=== PATIENT | male | born 2005 | race Caucasian/White ===

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

== ENCOUNTER 2024-04-23 10:13 | Emergency (ER) | payer BC, MEDICAID, SELFPAY ==
[2024-04-23 10:34] VITALS: BP 122/83; PULSE 87; RESP 17; TEMP 36.7; O2SAT 99
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
[2024-04-23 11:07] LABS: Basophils Absolute Auto 0.1 K/mm3 (0.0-0.1); Basophils Percent Auto 0.8 % (0.2-1.2); Eosinophils Absolute Auto 0.3 K/mm3 (0-0.3); Eosinophils Percent Auto 5.4 % (0-4.4); Hematocrit 47.4 % (42.0-52.0); Hemoglobin 15.6 g/dL (14.0-18.0); Immature Granulocyte Absolute 0.01 K/mm3 (0.00-0.031); Immature Granulocyte Percent A 0.2 % (0-0.5); Lymphocytes Absolute Auto 1.44 K/mm3 (0.9-3.2); Lymphocytes Percent Auto 23.6 % (18.3-44.2); Mean Corpuscular HGB Conc 32.9 g/dl (32-36); Mean Corpuscular Hemoglobin 29.3 pg (26-34); Mean Corpuscular Volume 89.1 fl (80-100); Mean Platelet Volume 10.9 fl (7.4-10.4); Monocytes Absolute Auto 0.5 K/mm3 (0.1-0.6); Monocytes Percent Auto 8.2 % (2.6-8.5); Neutrophils Absolute Auto 3.8 K/mm3 (1.3-6.7); Neutrophils Percent Auto 61.8 % (45.5-73.1); Platelet Count Result 219 k/mm3 (150-375); Red Blood Count 5.32 M/mm3 (4.6-6.20); Red Cell Distribution Width 13.2 % (11.5-14.5); White Blood Count 6.1 K/mm3 (4.5-10.0)
[2024-04-23 11:21] LABS: Acetaminophen < 10 ug/mL (10-30); Salicylate < 1.0 mg/dL (2-20)
[2024-04-23 11:21] LABS: Ethanol < 10 mg/dL (<10)
[2024-04-23 11:22] LABS: Alanine Aminotransferase 16 U/L (6-50); Albumin Level 4.9 g/dL (3.5-5.1); Alkaline Phosphatase 83 U/L (38-126); Anion Gap 11 mmol/L (4-12); Aspartate Amino Transferase 29 U/L (17-59); Bilirubin,Total 1.4 mg/dL (0.2-1.3); Blood Urea Nitrogen 13 mg/dL (9-20); Calcium 10.2 mg/dL (8.4-10.2); Carbon Dioxide 29 mmol/L (22-30); Chloride 100 mmol/L (98-107); Estimated CRCL calculation 101 ml/min; Estimated Glomerular Filt Rate > 60; Glucose 103 mg/dL (65-110); Potassium 4.3 mmol/L (3.4-5.0); Sodium 140 mmol/L (137-145)
[2024-04-23 11:32] LABS: Amphetamine Screen Urine Negative (Negative); Barbiturate Screen Urine Negative (Negative); Benzodiazepines Screen Urine Negative (Negative); Cannabinoid Screen Urine Positive (Negative); Cocaine Screen Urine Negative (Negative); Methadone Screen Urine Negative (Negative); Opiate Screen Urine Negative (Negative); Phencyclidine Screen Urine Negative (Negative)
[2024-04-23 11:42] LABS: Add Urine Microscopic? YES; Appearance Urine Clear (Clear); Bacteria Urine None Seen /hpf; Bilirubin Urine Negative (Negative); Blood Urine Negative (Negative); Color Urine Dark Yellow (Yellow); Glucose Urine UA Negative (Negative); Ketones Urine Trace mg/dL (Negative); Leukocyte Esterase Ur Trace LEU/UL (Negative); Mucus Urine Present /lpf; Need Manual Microscopic Reviewed; Nitrate Urine Negative (Negative); Protein Urine 1+ mg/dL (Negative); RBC Urine 0-2 /hpf (0-2); Specific Grav Ur 1.029 (1.001-1.035); Squamous Epithelial Cell Urine None Seen /hpf (Few); WBC Urine 0-5 /hpf (0-3); pH Urine 7.5 (5.0-9.0)
[2024-04-23 11:58] LABS: Thyroid Stimulating Hormone Reflex 0.552 uIU/mL (0.465-4.68)
[2024-04-23 12:01] LABS: SARS-CoV-2 RNA PCR Negative (Negative)
== END 2024-04-23 14:35 | disposition home or self-care (01) ==
PROVIDERS: Emergency Medicine; Emergency Provider Physician Assistant; PCP Family Medicine
DX: R45.851 Suicidal ideations (principal); F41.9 Anxiety disorder, unspecified; Z11.52 Encounter for screening for COVID-19; Z87.891 Personal history of nicotine dependence
CPT/HCPCS: 36415; 80053; 80307; 81001; 84443; 85025; 87635; 99284

== ENCOUNTER 2024-10-25 23:30 | Emergency (ER) | payer OTHER, BC, MEDICAID, SELFPAY ==
--- NOTE | ~2024-10-25 | XR_ITS ---
EXAMINATION: XR chest 2V DATE: 10/26/2024 00:24 INDICATION: Chest pain. Injury. TECHNIQUE: Frontal and lateral views of the chest were obtained. COMPARISON: Chest 2 views 12/05/2021 FINDINGS: There is no pneumonia, pleural effusion, or pneumothorax. The heart size is normal. IMPRESSION: 1. No acute cardiopulmonary disease. Reviewed, dictated and finalized at location A. ER FILLER
--- NOTE | ~2024-10-25 | XR_ITS ---
EXAMINATION: XR tibia fibula LT 2V DATE: 10/26/2024 00:24 INDICATION: Left lower leg injury and pain. TECHNIQUE: 2 views of left tibia and fibula on 4 radiographs were obtained. COMPARISON: None. FINDINGS: Alignment is normal. No fracture. Joint spaces are normal. IMPRESSION: 1. No fracture. Reviewed, dictated and finalized at location A. HING MACHINE OPERATOR IMPRESSION: 1. No fracture.
--- OUTSIDE RECORDS SUMMARY | 2024-10-25 23:32 | XMS_ITS | Clinical Summary ---
Author Organization 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 Gender Identity Not on file Sexual Orientation Not on file Plan of Treatment Health Maintenance Due Date Last Done Comments Hepatitis C Virus (HCV) Screening 2003 Human Papillomavirus (HPV) Immunization (1 - Male 3-dose series) 2018 Meningococcal B Immunization (1 of 2 - Standard) 2019 Influenza Immunization (#1) 2024 07/23/2013 SARS-COV-2 Immunization ( season) 2024 Respiratory Syncytial Virus (RSV) Immunization (Adult) (1 - 1-dose 75+ series) 2078 Hepatitis B Immunization Completed 004, 2003, 2003 Pneumococcal Immunization Combined Aged Out 07/21/2004, 2003, 2003, Additional history exists No longer eligible based on patient's age to complete this topic Measles Mumps Rubella (MMR) Immunization Discontinued 04/08/2008, 07/21/2004 Polio (IPV) Immunization Discontinued 008, 2003, 2003 Varicella Immunization Discontinued 04/08/2008, 2003 DTaP/Tdap/Td Immunization Discontinued 2013, 04/08/2008, 2003, Additional history exists TdaP Immunization Completed 04/22/2014 Meningococcal Immunization (ACWY) Completed 06/11/2020, 04/22/2014 Rotavirus Immunization Aged Out No lo nger eligible based on patient's age to complete this topic
[2024-10-25 23:38] VITALS: BP 159/89; PULSE 68; RESP 19; TEMP 37.3; O2SAT 100
--- NOTE | 2024-10-25 23:53 | ECG_ITS ---
Test Date: 2024-10-25 23:59:30 Measurements Intervals [place] Rate: 72 P: 68 OR: 145 QRS: 68 QRSD: 98 T: 50 QT: 347 QTc: 381 Interpretive Statements SINUS RHYTHM PEAKED T WAVES- CONSIDER HYPERKALEMIA ABNORMAL ECG No previous ECG available for comparison Electronically Signed On 10-26-2024 06:54:36 FIRE ALARM TECHNICIAN by Jan Álvarez D.O.
[2024-10-26] VITALS (8 sets, daily range): BP systolic 111–118; BP diastolic 69–86; PULSE 60–87; RESP 10–28; O2SAT 98–100
--- NOTE | 2024-10-26 02:44 | ED_ITS ---
HPI - General Adult General Chief complaint: Trauma Stated complaint: chest and leg crushed between a roller Time Seen by Provider: 10/26/24 02:31 History of Present Illness HPI narrative: 19-year-old otherwise healthy male presenting to the emergency department for evaluation after a injury he sustained at work. He was working with a roller press when 1 of the rollers pushed into his chest briefly and then patient fell backwards and landed on his leg. Patient was able to get the metal off of him and then get up without assistance. He was complain of some small bruising to his left lower extremity and calf as well as tenderness over his ribcage. Did not lose consciousness, no significant crush type injury or any difficulty with extrication. No head trauma or injury. He has otherwise been in his normal state of health, describes a 2/10 pain is left-sided ribcage and a 6/10 pain in his left calf. Is able to ambulate unassisted. Has not taken anything for pain prior to arrival. Denies any shortness of breath, difficulty breathing, nausea, vomiting, vision changes, weakness, fatigue, calf asymmetry or difficulty ambulating. Related Data Allergies Allergy/AdvReac Type Severity Reaction Status Date / Time Penicillins Allergy Intermediate Unknown Verified 04/23/24 10:55 Review of Systems Review of Systems: As reviewed above in HPI ON LICENSE OF [facility] Past Medical History Medical History Penile mass Cough productive of yellow sputum Left wrist fracture Surgical History Surgical History No history of previous surgery Family History Family History Mother Family history of malignant neoplasm of breast Grandparent Hypertension Other Depression Family history of elevated blood lipids Social History Social History Smoking status: Former smoker Tobacco type: e-cigarettes/vaping Second hand tobacco smoke exposure: No Alcohol intake: never Substance use: never Substance use type: marijuana Lack of Transportation: No Lack of Food: Never True Current Housing: Decline to Answer Concerned About Future Housing: No Difficulty Paying Gas/Electric Bills: No Difficulty Paying for Meds: No Currently Unemployed: No Education: High School Diploma/GED Difficulty w/ Childcare or Family Care: No Exam Narrative: GENERAL: [Well-appearing, well-nourished, and in no acute distress.] HEAD: [Normocephalic, atraumatic.] EYES: [PERRLA and EOMI.] ENT: Nares clear, no rhinorrhea or epistaxis. Mucous membranes moist. NECK: Supple. CHEST: [Clear to auscultation. No respiratory distress.] HEART: [Regular rate and rhythm]. No murmur heard. [Normal peripheral pulses.] ABDOMEN: [Soft, nondistended], [nontender], [No rigidity or guarding] EXTREMITIES: Normal range of motion, plantar and dorsiflexion 5/5, hip and knee flexion 5/5 bilaterally. Able ambulate without any ataxic or antalgic gait. Focal tenderness over the gastrocnemius muscles distant left lower extremity but no overlying skin changes or bruising. No calf asymmetry. Tenderness over the left-sided ribcage on the 5th rib without any step-offs deformities or any instability in the chest wall. SKIN: Warm, dry, no rash. NEURO: [No focal deficits]. Alert and oriented [x3.] PSYCH: [Normal mood and affect.] Course Vital Signs Vital signs: Vital Signs Temperature 37.3 C 10/25/24 23:38 Pulse Rate 68 10/25/24 23:38 Respiratory Rate 19 10/25/24 23:38 Blood Pressure 159/89 H 10/25/24 23:38 Pulse Oximetry 100 10/25/24 23:38 Oxygen Delivery Room Air 10/25/24 23:38 Temperature 37.3 C 10/25/24 23:38 Pulse Rate 87 10/26/24 02:31 Respiratory Rate 22 H 10/26/24 02:31 Blood Pressure 118/84 10/26/24 02:31 Pulse Oximetry 100 10/26/24 02:31 Oxygen Delivery Room Air 10/25/24 23:38 Medical Decision Making MDM Narrative Medical decision making narrative: 19-year-old male presenting for injuries sustained at work. He is minor tend erness along his left-sided 5th rib without any step-offs deformities. Clear breath sounds throughout, normal oxygenation, no tachypnea, hypoxia or tachycardia. He also has some left-sided calf tenderness but no asymmetry or bruising. Full range of motion of his musculoskeletal structures, otherwise well-appearing not any acute distress. X-rays were obtained of his left tib-fib region as well as they two-view of his chest and x-rays of his ribs. EKG obtained in triage. Patient provided intramuscular Toradol. X-ray showed no evidence of any fractures or dislocations. No consolidations, pleural effusions or pneumothorax on the chest x-ray. No visible rib fractures. Patient was re-evaluated with improvement in his pain was stable for discharge home at this time and given a short course of Toradol in addition to Tylenol for analgesia. Patient discharged with return precautions. Medical Records Medical records reviewed: Yes I reviewed the external patient's medical records. Vital Signs Vital Signs: Vital Signs Temperature 37.3 C 10/25/24 23:38 Pulse Rate 68 10/25/24 23:38 Respiratory Rate 19 10/25/24 23:38 Blood Pressure 159/89 H 10/25/24 23:38 Pulse Oximetry 100 10/25/24 23:38 Oxygen Delivery Room Air 10/25/24 23:38 Temperature 37.3 C 10/25/24 23:38 Pulse Rate 87 10/26/24 02:31 Respiratory Rate 22 H 10/26/24 02:31 Blood Pressure 118/84 10/26/24 02:31 Pulse Oximetry 100 10/26/24 02:31 Oxygen Delivery Room Air 10/25/24 23:38 Imaging Data Attestation: I personally reviewed and interpreted this imaging study as follows: My impression: No fractures, dislocations or injury. No cardiothoracic findings on chest x- ray. Discharge Plan Discharge Clinical Impression: Left-sided chest wall pain, Left leg pain, Accident at workplace Patient Disposition: Home, Self-Care Condition: Stable Instructions: Antibiotic Form Additional Instructions: Your x-rays are very reassuring, no fractures or injuries. Follow-up with regular doctor. Take Tylenol in addition to the ketorolac on prescription. Return with any new or worsening concerns. Patient Language: Citizen Of [place] Prescriptions: New acetaminophen [Tylenol Extra Strength] 500 mg tablet 1,000 mg PO TID PRN (Reason: pain) Qty: 30 0RF ketorolac 10 mg tablet 10 mg PO Q8H PRN (Reason: pain) 5 Days Qty: 20 0RF Rx Instructions: maximum total duration of 5 days from all oral, intranasal, or parenteral formulations lidocaine 5 % adhesive patch,medicated 1 patch topical DAILY Qty: 15 0RF Rx Instructions: leave on most painful area for up to 12 hrs No Action lorazepam [Ativan] 0.5 mg tablet 0.5 mg PO BID PRN (Reason: anxiety) Qty: 6 0RF albuterol sulfate [ProAir HFA] 90 mcg/actuation HFA aerosol inhaler 1 inh inhalation QID Qty: 6.7 2RF Follow-up/Referrals: Ebony Armstrong MD [Primary Care Provider] - Time of Disposition: 02:49
--- OUTSIDE RECORDS SUMMARY | 2024-10-26 03:00 | XMS_ITS | Referral Summary ---
Author Organization [facility] Address [address] [address] Care Team Providers Care Cisco Engineer Name Role Phone Ebony Armstrong MD Primary Care Provider [phone] Que Lester AMMONIUM NITRATE CRYSTALLIZER-TECHNICIAN TEST SYSTEMS Unavailable [phone] Source Comments [facility],non-owned Affiliates and Associated Physician Practices is amultiple site organization consisting of ambulatory clinics and hospital sitesin [place], [place], [place] and [place]. This disclosure is being madepursuant to the Care Everywhere program and may not contain all information available regarding this patient. Last updated 18.[facility] Allergies No known active allergies Medications * Be aware that medications may not be up to date on this document. Alwaysverify current medications with the patient. Medication Sig Dispensed Refills Start Date End Date Status lisdexamfetamine (VYVANSE) 60 MG capsule Take 60 mg by mouth once daily Active Active Problems Problem Noted Date Diagnosed Date Nondisplaced fracture of mid dle third of navicular bone of left wrist with routine healing 01/22/2020 Social History Tobacco Use Types Packs/Day Years Used Date Smoking Tobacco: Never Smokeless Tobacco: Never Sex and Gender Information Value Date Recorded Sex Assigned at Not on file Gender Identity Not on file Sexual Orientation Not on file Last Filed Vital Signs Vital Sign Reading Time Taken Comments Blood Pressure - - Pulse - - Temperature - - Respiratory Rate - - Oxygen Saturation - - Inhaled Oxygen Concentration - - Weight 78.3 kg (172 lb 9.9 oz) 03/04/2020 4:19 P M CDT Height 184.6 cm (6' 0.68 ) 03/04/2020 4:19 PM CD T Body Mass Index 22.98 03/04/2020 4:19 PM CDT Plan of Treatment Not on file Care Teams Cisco Engineer Relationship Specialty Start Date End Date Ebony Armstrong MD [address] [place] [address] PCP - General Family Medicine 12/11/19 Que Lester, AMMONIUM NITRATE CRYSTALLIZER-TECHNICIAN TEST SYSTEMS [address] [place] [address] Orthopedic Surgery Nurse Practitioner Family 03/04/20
--- OUTSIDE RECORDS SUMMARY | 2024-10-26 03:00 | XMS_ITS | Patient Health Summary ---
Author Organization [facility] Address [address] [place] [address] Care Team Providers Care Endband Cutter Hand Name Role Phone Ebony Armstrong MD Primary Care Provider [phone] Que Lester VP DIGITAL MARKETING-CUTTING MACHINE OPERATOR HELPER Unavailable [phone] Note from [facility],non-owned Affiliates and Associated Physician Practices is amultiple site organization consisting of ambulatory clinics and hospital sitesin [place], [place], [place] and [place]. This disclosure is being madepursuant to the Care Everywhere program and may not contain all information available regarding this patient. Last updated 18.[facility] Allergies No known active allergies Medications * Be aware that medications may not be up to date on this document. Alwaysverify current medications with the patient. * lisdexamfetamine (VYVANSE) 60 MG capsule Take 60 mg by mouth once daily Active Problems Problem Noted Date Diagnosed Date [...] Mass Index 22.98 03/04/2020 4:19 PM CDT Procedures * XR HAND LEFT 3VW OR MORE(Performed 03/04/2020) Performed for Closed nondisplaced fracture of middle third of scaphoid of left wrist with routine healing, subsequent encounter * XR HAND LEFT 3VW OR MORE(Performed 01/22/2020) Performed for Open nondisplaced fracture of middle third of scaphoid bone of left wrist, initial encounter * XR WRIST LEFT 3VW OR MORE(Performed 12/11/2019) Performed for Left wrist injury, initial encounter * XR HAND RIGHT 3VW OR MORE(Performed 04/08/2017) Performed for Closed nondisplaced fracture of scaphoid of right wrist with routine healing, unspecified portion of scaphoid, subsequent encounter Results * XR HAND LEFT 3VW OR MORE (03/04/2020 4:18 PM CDT) Only the most recent of2 resultswithin the time period is included. Anatomical Region Laterality Modality Wrist / Hand Radiographic Gilberto ging 03/05/2020 6:57 AM CDT Impressions 03/05/2020 7:00 AM CDT 1. Essentially complete healing of the scaphoid waist fracture, without evidence of proximal pole AVN. Satisfactory carpal alignment *Reading Radiologist: Lloyd Andrews on 03/05/2020 at 7:00 AM Narrative 03/05/2020 7:00 AM CDT INDICATION: Nondisplaced fracture scaphoid. Evaluate for healing COMPARISON: 01/22/2020 TECHNIQUE: Frontal, oblique and lateral views of the left hand. FINDINGS: Progressive, essentially complete interval healing of the scaphoid waist fracture. Similar focus of trabecular rare fraction central aspect of the scaphoid, presumably related to the healing response. Alignment is satisfactory/near-anatomic. There is no radiographic evidence of proximal pole AVN (no proximal pole heterogeneity, sclerosis, irregularity). The scapholunate interval is normal. Carpal alignment is satisfactory. No aggressive intrinsic lesion. No radiopaque foreign body No new fracture Procedure Note Lloyd Andrews MD - 03/05/2020 INDICATION: Nondisplaced fracture scaphoid. Evaluate for healing COMPARISON: 01/22/2020 TECHNIQUE: Frontal, oblique and lateral views of the left hand. FINDINGS: Progressive, essentially complete interval healing of the scaphoid waist fracture. Similar focus of trabecular rare fraction central aspect of the scaphoid, presumably related to the healing response. Alignment is satisfactory/near-anatomic. There is no radiographic evidence of proximal pole AVN (no proximal pole heterogeneity, sclerosis, irregularity). The scapholunate interval is normal. Carpal alignment is satisfactory. No aggressive intrinsic lesion. No radiopaque foreign body No new fracture IMPRESSION 1. Essentially complete healing of the scaphoid waist fracture, without evidence of proximal pole AVN. Satisfactory carpal alignment *Reading Radiologist: Lloyd Andrews on 03/05/2020 at 7:00 AM Mary Beth CHAVEZ DIAGNOSTIC IMAGING O RDERABLES * XR WRIST LEFT 3VW OR MORE (12/11/2019 3:01 PM CDT) Anatomical Region Laterality Modality Wrist / Hand Radiographic Gilberto ging 12/11/2019 3:17 PM CDT Impressions 12/11/2019 3:24 PM CDT Probable nondisplaced scaphoid waist fracture. >>Reading Radiologist: LAZARO HOBBS on 12/11/2019 at 3:24 PM Narrative 12/11/2019 3:24 PM CDT CLINICAL HISTORY: Unspecified injury of left wrist, hand and finger(s), initial encounter COMPARISON: None PROCEDURE: 3 views of the left wrist FINDINGS: There is a probable nondisplaced fracture of the scaphoid, with cortical lucency along the radial aspect of the scaphoid waist. No additional fractures are noted. Alignment is maintained. Mild soft tissue swelling about the wrist. Procedure Note Lazaro Hobbs MD - 12/11/2019 CLINICAL HISTORY: Unspecified injury of left wrist, hand and finger(s), initial encounter COMPARISON: None PROCEDURE: 3 views of the left wrist FINDINGS: There is a probable nondisplaced fracture of the scaphoid, with cortical lucency along the radial aspect of the scaphoid waist. No additional fractures are noted. Alignment is maintained. Mild soft tissue swelling about the wrist. IMPRESSION Probable nondisplaced scaphoid waist fracture. >>Reading Radiologist: LAZARO HOBBS on 12/11/2019 at 3:24 PM Que Lester VP DIGITAL MARKETING-CUTTING MACHINE OPERATOR HELPER DIAGNOSTIC GILBERTO GING ORDERABLES * XR HAND 3+ VW RIGHT (04/08/2017 3:51 PM CDT) Anatomical Region Laterality Modality Wrist / Hand Radiographic Gilberto ging 04/08/2017 3:53 PM CDT Impressions 04/08/2017 4:13 PM CDT Mild sclerosis along the midportion of the scaphoid, likely a healing fracture in near anatomic alignment. Dictated by Severino GIBBONS I, Jolynn Merritt, have personally reviewed the images and I agree with this report. Narrative 04/08/2017 4:13 PM CDT EXAMINATION: Right hand, 3 views. HISTORY: 11 year old male with the age of the right hand. COMPARISON: None FINDINGS: Mild sclerosis is seen in the midportion of the scaphoid. No acute fractures identified. The joint spaces and alignment appear normal. Procedure Note Jolynn Merritt MD - 04/08/2017 EXAMINATION: Right hand, 3 views. HISTORY: 11 year old male with the age of the right hand. COMPARISON: None FINDINGS: Mild sclerosis is seen in the midportion of the scaphoid. No acute fractures identified. The joint spaces and alignment appear normal. IMPRESSION Mild sclerosis along the midportion of the scaphoid, likely a healing fracture in near anatomic alignment. Dictated by Severino GIBBONS I, Jolynn Merritt, have personally reviewed the images and I agree with this report. Serge Yi MD DIAGNOSTIC IMAGIN G ORDERABLES Care Teams Endband Cutter Hand Relationship Specialty Start Date End Date Ebony Armstrong MD [address] [place] [address] PCP - General Family Medicine 12/11/19 Que Lester, VP DIGITAL MARKETING-CUTTING MACHINE OPERATOR HELPER [address] [place] [address] Orthopedic Surgery Nurse Practitioner Family 03/04/20
--- OUTSIDE RECORDS SUMMARY | 2024-10-26 03:00 | XMS_ITS | Clinical Summary ---
Author Organization [facility] Address [address] [place] [address] Care Team Providers Care Distribution Engineer Name Role Phone Ebony Armstrong MD Primary Care Provider [phone] Que Lester SENIOR SITE MANAGER-CAGER OPERATOR Unavailable [phone] Source Comments [facility],non-owned Affiliates and Associated Physician Practices is amultiple site organization consisting of ambulatory clinics and hospital sitesin [place], [place], [place] and [place]. This disclosure is being madepursuant to the Care Everywhere program and may not contain all information available regarding this patient. Last updated 18.[facility] Roomish Allergies No known active allergies Medications * [...] 03/04/2020 4:19 PM CDT Plan of Treatment Health Maintenance Due Date Last Done Comments HIV SCREENING 2018 HPV VACCINE (1 - Male 3-dose series) 2018 MENINGOCOCCAL (Group B) VACC INE (1 of 2 - Standard) 2019 HEPATITIS C SCREENING 04/08/2021 DTAP/TDAP/TD VACCINES (1 - Tdap) 2022 HEPATITIS B VACCINE (1 of 3 - 19+ 3-dose series) 2022 COVID-19 VACCINE (1 - 2023-2 5 season) 2024 INFLUENZA VACCINE (#1) 2024 DEPRESSION SCREENING 09/12/2024 ZOSTER VACCINE (1 of 2) 2053 HIB VACCINE Aged Out No longer eligi ble based on patient's age to complete this topic MENINGOCOCCAL VACCINE Aged Out No johnny domingo eligible based on patient's age to complete this topic PNEUMOCOCCAL VACCINE Aged Out No long er eligible based on patient's age to complete this topic Care Teams Distribution Engineer Relationship Specialty Start Date End Date Ebony Armstrong MD [address] [place] [address] PCP - General Family Medicine 12/11/19 Que Lester, SENIOR SITE MANAGER-CAGER OPERATOR [address] [place] [address] Orthopedic Surgery Nurse Practitioner Family 03/04/20
--- OUTSIDE RECORDS SUMMARY | 2024-10-26 03:00 | XMS_ITS | Clinical Summary ---
Author Organization [facility] Address [address] [place] [address] Care Team Providers Care Team Truck Driver Name Role Phone Unavailable Primary Care Provider Unavailabl e Social History Tobacco Use Types Packs/Day Years Used Date Smoking Tobacco: Never Assessed Sex and Gender Information Value Date Recorded Sex Assigned at Not on file Legal Sex Male 3:18 PM JAVA INTEGRATION DEVELOPER Gender Identity Not on file Sexual Orientation [...]
[2024-10-26] MEDS: KETOROLAC 30 MG/ML VIAL (*BKC) IM (03:03)
== END 2024-10-26 03:07 | disposition home or self-care (01) ==
PROVIDERS: Emergency Provider Student in an Organized Health Care Education/Training Program; PCP Family Medicine
DX: S89.92XA Unspecified injury of left lower leg, initial encounter (principal); S29.9XXA Unspecified injury of thorax, initial encounter; Z87.891 Personal history of nicotine dependence; R94.31 Abnormal electrocardiogram [ECG] [EKG]; W31.89XA Contact with other specified machinery, initial encounter
CPT/HCPCS: 71046; 73590; 93005; 96372; 99284; J1885